=== PATIENT | male | born 1995 | race African-American/Black ===

== ENCOUNTER 2019-06-16 15:14 | Emergency (ER) | payer BC ==
[~2019-06-16] VITALS: Ht 177.8 cm; Wt 63.5 kg
--- NOTE | 2019-06-16 15:26 | NUR ---
ED Nurse Note: pt complaining of right wrist "bump" x 3 days. pt denies pain, growth in size of bump. pt states right hand feel numb
[2019-06-16 15:27] VITALS: BP 125/72
[2019-06-16] MEDS ORDERED: Omnipaque-300 100ml vial INJ PRN (15:45)
--- NOTE | 2019-06-16 15:50 | NUR ---
ED Nurse Note: IV line established, blood and urine specimen sent to lab
[2019-06-16 16:15] LABS: APPEARANCE,URINE CLEAR; BILIRUBIN, URINE NEGATIVE (NEGATIVE); COLOR,URINE AMBER; GLUCOSE, URINE (UA) NEGATIVE (NEGATIVE); KETONES,URINE NEGATIVE (NEGATIVE); LEUKOCYTE ESTERASE ,URINE 1+ (NEGATIVE); NITRITE,URINE NEGATIVE (NEGATIVE); PH,URINE 8 (4.5-8.0); PROTEIN,URINE NEGATIVE (NEGATIVE); UROBILINOGEN,URINE NORMAL MG/DL (0.0-1.0)
[2019-06-16 16:23] LABS: BASOPHILS % (AUTO) 2.2 % (0.0-2.0); EOSINOPHILS % (AUTO) 4.6 % (0.0-3.0); HEMATOCRIT 41.7 % (42.0-52.0); HEMOGLOBIN 14.2 G/DL (14.2-18.0); LYMPHOCYTES % (AUTO) 48.2 % (20.0-45.0); MEAN CORPUSCULAR VOLUME 90 FL (80-99); MONOCYTES % (AUTO) 10.7 % (1.0-10.0); NEUTROPHILS % (AUTO) 34.3 % (45.0-75.0); PLATELET COUNT 207 K/UL (150-450); RED BLOOD COUNT 4.62 M/UL (4.70-6.10); WHITE BLOOD COUNT 4.3 K/UL (4.8-10.8)
[2019-06-16 16:25] LABS: ANION GAP 10 mmol/L (5-15); BLOOD UREA NITROGEN 11 mg/dL (7-18); CALCIUM 9.3 MG/DL (8.5-10.1); CARBON DIOXIDE 30 MMOL/L (21-32); CHLORIDE 105 MMOL/L (98-107); SODIUM 145 MMOL/L (136-145)
[2019-06-16 16:32] LABS: ALANINE AMINOTRANSFERASE 26 U/L (12-78); ALBUMIN 4.1 G/DL (3.4-5.0); ALBUMIN/GLOBULIN RATIO 1.1 (1.0-2.7); ALKALINE PHOSPHATASE 66 U/L (46-116); ASPARTATE AMINO TRANSFERASE 21 U/L (15-37); BILIRUBIN,TOTAL 0.4 MG/DL (0.2-1.0)
--- NOTE | 2019-06-16 16:48 | NUR ---
ED Nurse Note: pt taken to CT
--- NOTE | 2019-06-16 17:05 | NUR ---
ED Nurse Note: pt returned from CT
[2019-06-16 17:19] VITALS: BP 121/73
--- NOTE | 2019-06-16 18:53 | Emergency Room Report ---
History of Present Illness General Chief Complaint: Skin Rash/Abscess Source: Patient Present Illness HPI 23-year-old male with no symptom past medical history here complaining of a deformity and growth noted on the right wrist times several years that has been bothersome to him in the past few days causing numbness in the right hand. Patient denies any fall or injury, denies any pain in the affected area. Denies tingling at this time and reports that he only feels them when he tries to make a fist. Patient is right-handed and reports that he works out a lot with the affected side. No motor or sensory deficits noted upon physical examination. Patient denies all other associated symptoms, weight loss, night sweats. Denies chest pain, shortness of breath, palpitations, and other associated symptoms. Allergies: Coded Allergies: No Known Allergies (Unverified , 06/16/19) Patient History Past Medical History: see triage record Past Surgical History: unable to obtain Pertinent Family History: none Immunizations: UTD Reviewed Nursing Documentation: PMH: Agreed; PSxH: Agreed Nursing Documentation-PMH Past Medical History: No Stated History Review of Systems All Other Systems: negative except mentioned in HPI Physical Exam Vital Signs Date Time Temp Pulse Resp B/P (MAP) Pulse Ox O2 Delivery O2 Flow Rate FiO2 06/16/19 15:22 98.8 57 20 125/72 (89) 97 Room Air Sp02 EP Interpretation: reviewed, normal General Appearance: no apparent distress, alert, GCS 15, non-toxic Head: normocephalic, atraumatic Eyes: bilateral eye normal inspection, bilateral eye PERRL ENT: hearing grossly normal, normal pharynx, no angioedema, normal voice Neck: full range of motion, supple, no meningismus, supple/symm/no masses Respiratory: chest non-tender, lungs clear, normal breath sounds, no rhonchi, no wheezing, speaking full sentences Cardiovascular #1: regular rate, rhythm, no edema, no murmur, normal capillary refill Cardiovascular #2: 2+ radial (R), 2+ radial (L) Gastrointestinal: normal bowel sounds, non tender, soft, non-distended, no guarding, no rebound Rectal: deferred Genitourinary: no CVA tenderness Musculoskeletal: back normal, digits/nails normal, gait/station normal, normal range of motion, non-tender, no calf tenderness, other - Nonpulsatile hard growth noted on the right medial wrist Neurologic: alert, oriented x3, responsive, motor strength/tone normal, sensory intact, speech normal Psychiatric: judgement/insight normal, memory normal, mood/affect normal, no suicidal/homicidal ideation Skin: no rash Lymphatic: no adenopathy Medical Decision Making PA Attestation All diagnoses and treatment plans were reviewed and discussed with my supervising physician Dr. Sauceda Diagnostic Impression: Primary Impression: Ganglion cyst Additional Impression: UTI (urinary tract infection) ER Course 23-year-old male with no symptom past medical history here complaining of a deformity and growth noted on the right wrist times several years that has been bothersome to him in the past few days causing numbness in the right hand. Patient denies any fall or injury, denies any pain in the affected area. Denies tingling at this time and reports that he only feels them when he tries to make a fist. Patient is right-handed and reports that he works out a lot with the affected side. No motor or sensory deficits noted upon physical examination. Patient denies all other associated symptoms, weight loss, night sweats. Denies chest pain, shortness of breath, palpitations, and other associated symptoms. Ddx considered but are not limited to : Benign mass, ganglion cyst, osteophyte, osteosarcoma Vital signs: are WNL, pt. is afebrile H&PE are most consistent with: Renal cyst, incidental finding of urinary tract infection ORDERS: CBC, CMP, UA, CT scan of the right hand and wrist with contrast ED INTERVENTIONS: None required at this time. DISCHARGE: At this time pt. is stable for d/c to home. Will provide printed patient care instructions, and any necessary prescriptions. Care plan and follow up instructions have been discussed with the patient prior to discharge. Patient to follow-up with her primary care provider for referral to general surgeon for further assessment of the ganglion cyst. If worsening symptoms return to the emergency room. CT/MRI/US Diagnostic Results CT/MRI/US Diagnostic Results : Imaging Test Ordered: CT scan right hand/wrist with contrast Impression CT EXTREMITY LEFT UPPER With Contrast: Additional history: Mass for several years. No trauma. There is a 2.7 x 1.4 x 1.5 cm cystic mass to the volar distal forearm. This is along the medial/ulnar aspect of the flexor digitorum tendons and deep to the flexor carpi ulnaris. Superficial edge is 2 mm from the skin. The mass tapers towards the wrist (series 7, images 9 and 10). Constellation of findings suggest a ganglion cyst communicating with the wrist. No acute osseous abnormality. Last Vital Signs Date Time Temp Pulse Resp B/P (MAP) Pulse Ox O2 Delivery O2 Flow Rate FiO2 06/16/19 17:19 98.5 78 19 121/73 97 Room Air Disposition: HOME, SELF-CARE Condition: Stable Scripts Cephalexin* (KEFLEX*) 500 Mg Tablet 500 MG ORAL EVERY 6 HOURS for 7 Days, #28 CAP Prov: Edgar Epperson 06/16/19 Referrals: NOT CHOSEN IPA/MD,REFERRING (PCP) Patient Instructions: Ganglion Cyst, Urinary Tract Infection, [id number] Additional Instructions: Follow-up with your primary care provider regarding her ganglion cyst further imaging may be needed if worsening symptoms return to emergency room. Take medication as directed as it was an incidental finding of urinary tract infection. Edgar Epperson Jun 16, 2019 18:53
[2019-06-16] MEDS ORDERED: CEPHALEXIN500 M1 ORAL (18:54)
--- NOTE | 2019-06-16 18:56 | Diagnostic Imaging Report ---
Indication: Reason For Exam: MASS Technique: IV administration nonionic contrast. Spiral acquisitions obtained through the right hand Multiplanar reconstructions were generated. Total dose length product 1377 mGycm. CTDIvol(s) 35 mGy. Radiation dose was minimized using automated exposure control Comparison: none Findings: Anterior to the distal ulna, there is a cystic lesion which is unilocular, demonstrates an enhancing rim, measures 27 x 17 mm in diameter. No other similar lesions are demonstrated. No acute fractures. No dislocations. The joint spaces are preserved. Evaluation of the distal digits is limited by motion artifact. Impression: 27 x 17 mm cystic lesion anterior to the distal ulna, most likely a ganglion cyst. Most likely differential consideration is a synovial cyst This agrees with the preliminary interpretation provided overnight by [facility]. The CT scanner at [facility] is accredited by the [employer] and the scans are performed using protocols designed to limit radiation exposure to as low as reasonably achievable to attain images of sufficient resolution adequate for diagnostic evaluation.
[2019-06-16 18:58] VITALS: BP 125/73
--- NOTE | 2019-06-16 19:03 | NUR ---
ER DISCHARGE NOTE: Patient is cleared to be discharged per ERMD, pt is aox4, on room air, with stable vital signs. pt was given dc and prescription instructions, pt was able to verbalize understanding, pt id band and iv site removed without complications. pt is able to ambulate with steady gait. pt took all belongings.
== END 2019-06-16 18:58 | disposition home or self-care (01) ==
LOC: EMR 15:39
DX: M67.431 Ganglion, right wrist (principal); N39.0 Urinary tract infection, site not specified
CPT/HCPCS: 36415; 73202; 80053; 81001; 85025; 99284; Q9967

== ENCOUNTER 2019-11-26 13:06 | Emergency (ER) | payer BC, MEDICAID ==
[~2019-11-26] VITALS: Ht 177.8 cm; Wt 72.6 kg
[~2019-11-26 13:06] MED LIST: CEPHALEXIN500 M1 ORAL
[2019-11-26 13:47] VITALS: BP 112/71
[2019-11-26] MEDS ORDERED: Omnipaque-300 100ml vial INJ PRN (14:00)
[2019-11-26 14:08] LABS: EOSINOPHILS % (AUTO) 0.2 % (0.0-3.0); HEMATOCRIT 48.4 % (42.0-52.0); HEMOGLOBIN 16.7 G/DL (14.2-18.0); LYMPHOCYTES % (AUTO) 12.5 % (20.0-45.0); MEAN CORPUSCULAR VOLUME 89 FL (80-99); MONOCYTES % (AUTO) 11.1 % (1.0-10.0); NEUTROPHILS % (AUTO) 75.3 % (45.0-75.0); PLATELET COUNT 279 K/UL (150-450); RED BLOOD COUNT 5.41 M/UL (4.70-6.10); RED CELL DISTRIBUTION WIDTH 11.3 % (11.6-14.8); WHITE BLOOD COUNT 8.9 K/UL (4.8-10.8)
[2019-11-26 14:19] LABS: ANION GAP 18 mmol/L (5-15); BLOOD UREA NITROGEN 42 mg/dL (7-18); CALCIUM 11.1 MG/DL (8.5-10.1); CARBON DIOXIDE 24 MMOL/L (21-32); CHLORIDE 91 MMOL/L (98-107); CREATININE 2.8 MG/DL (0.55-1.30); POTASSIUM 3.5 MMOL/L (3.5-5.1); SODIUM 133 MMOL/L (136-145)
--- NOTE | 2019-11-26 14:33 | Emergency Room Report ---
History of Present Illness General Chief Complaint: Abdominal Pain Source: Patient (Deena Madrid) Present Illness HPI 24-year-old male presents to the emergency department complaining of 10 out of 10 severity pain, swelling and erythema to the right inguinal area x2 days. Patient reports he has a history of right inguinal hernia and was diagnosed with this in months ago. Patient reports his primary care doctor has been evaluating him for his symptoms and this patient states that his symptoms come and go. Patient reports he has never had this much pain and tenderness and he was told by his primary care doctor that if he has another episode of pain and swelling that he needs to be evaluated at the ER for possible surgery. Patient denies fevers or chills. He denies testicular pain or tenderness. Patient denies penile discharge, hematuria, dysuria, pyuria or urinary frequency. He denies history of STD. He denies abdominal pain or tenderness. He denies significant past medical history. He denies taking any medications. (Deena Madrid) Allergies: Coded Allergies: No Known Allergies (Unverified , 06/16/19) COVID-19 Screening Contact w/high risk pt: No Recent Travel to affected area: No Experienced COVID-19 symptoms?: No (Deena Madrid) Patient History Past Medical History: see triage record Past Surgical History: none Pertinent Family History: none Reviewed Nursing Documentation: PMH: Agreed; PSxH: Agreed (Deena Madrid) Nursing Documentation-PMH Past Medical History: No Stated History (Deena Madrid) Review of Systems All Other Systems: negative except mentioned in HPI (Deena Madrid) Physical Exam Vital Signs Date Time Temp Pulse Resp B/P (MAP) Pulse Ox O2 Delivery O2 Flow Rate FiO2 11/26/19 13:19 98.4 88 19 112/71 (85) 99 Room Air Sp02 EP Interpretation: reviewed, normal General Appearance: no apparent distress, alert, GCS 15, non-toxic Head: normocephalic, atraumatic Eyes: bilateral eye normal inspection, bilateral eye PERRL ENT: hearing grossly normal, normal voice Neck: full range of motion Respiratory: lungs clear, normal breath sounds, no wheezing, speaking full sentences Cardiovascular #1: regular rate, rhythm, no edema Gastrointestinal: normal bowel sounds, non tender, soft, non-distended, no guarding, no hernia - no visible hernia Rectal: deferred Genitourinary: normal inspection, no CVA tenderness, penis normal, other - TTP , swelling and erythema to an indurated right inguinal lesion that is approx 3.5 cm in length and 1.8cm wide. NO palpable fluctuance. NO palpable hernia. Musculoskeletal: back normal, normal range of motion, gait/station normal, non- tender Neurologic: alert, motor strength/tone normal, oriented x3, sensory intact, responsive, speech normal Psychiatric: judgement/insight normal Skin: other - TTP, swelling and erythema to an indurated right inguinal lesion that is approx 3.5 cm in length and 1.8cm wide. NO palpable fluctuance. NO palpable hernia. (Deena Madrid) Medical Decision Making PA Attestation Dr. Edwards is my supervising Physician whom patient management has been discussed with. (Deena Madird) PA Attestation Please read to the note for the full history exam and presentation I do agree with the evaluation The work-up and the findings were followed by myself as well Patient does require admission given the findings and concern for abscess And at this time has left AGAINST MEDICAL ADVICE (Aniyah Ignacio DO) Diagnostic Impression: Primary Impression: Acute renal failure (ARF) Qualified Codes: N17.9 - Acute kidney failure, unspecified Additional Impression: Inguinal abscess ER Course 24-year-old male presents to the emergency department complaining of 10 out of 10 severity pain, swelling and erythema to the right inguinal area x2 days. Patient reports he has a history of right inguinal hernia and was diagnosed with this in months ago. Patient reports his primary care doctor has been evaluating him for his symptoms and this patient states that his symptoms come and go. Patient reports he has never had this much pain and tenderness and he was told by his primary care doctor that if he has another episode of pain and swelling that he needs to be evaluated at the ER for possible surgery. Patient denies fevers or chills. He denies testicular pain or tenderness. Patient denies penile discharge, hematuria, dysuria, pyuria or urinary frequency. He denies history of STD. He denies abdominal pain or tenderness. He denies significant past medical history. He denies taking any medications. Ddx considered but are not limited to abscess, lymphadenopathy, hernia Vital signs: are WNL, pt. is afebrile H&PE are most consistent with hernia. I do not since suspect abscess or lymphadenopathy at this time as there is no history or evidence of infection, no erythema no increased temperature palpation ORDERS: -CBC: -BMP: elevated BUN and Cr. - UDS: Positive THC - Abdominal Pelvis CT w. IV contrast, Renal US, and Testicular US: see results below. ED INTERVENTIONS: - 1 liter NS bolus x 2 Pt. to be admitted and treated as inpatient for renal failure and inguinal abscess. DISPOSITION:AMA. - At this time the patient is requesting to leave AGAINST MEDICAL ADVICE. I believe that this patient has the capacity to make decisions on his own. I discussed with the patient the risks of leaving AMA. Some of these risks include delay in diagnosis and treatment, as well as worsening of symptoms, organ damage, and permanent disability or even . After discussing these risks with the patient. He continues to express his want to leave AGAINST MEDICAL ADVICE. I encouraged the patient to return at any time, and that he will be welcome here in the emergency department to continue medical management. Labs Test 11/26/19 13:55 11/26/19 14:50 White Blood Count 8.9 K/UL (4.8-10.8) Red Blood Count 5.41 M/UL (4.70-6.10) Hemoglobin 16.7 G/DL (14.2-18.0) Hematocrit 48.4 % (42.0-52.0) Mean Corpuscular Volume 89 FL (80-99) Mean Corpuscular Hemoglobin 30.8 PG (27.0-31.0) Mean Corpuscular Hemoglobin Concent 34.5 G/DL (32.0-36.0) Red Cell Distribution Width 11.3 % (11.6-14.8) Platelet Count 279 K/UL (150-450) Mean Platelet Volume 6.4 FL (6.5-10.1) Neutrophils (%) (Auto) 75.3 % (45.0-75.0) Lymphocytes (%) (Auto) 12.5 % (20.0-45.0) Monocytes (%) (Auto) 11.1 % (1.0-10.0) Eosinophils (%) (Auto) 0.2 % (0.0-3.0) Basophils (%) (Auto) 1.0 % (0.0-2.0) Sodium Level 133 MMOL/L (136-145) Potassium Level 3.5 MMOL/L (3.5-5.1) Chloride Level 91 MMOL/L (98-107) Carbon Dioxide Level 24 MMOL/L (21-32) Anion Gap 18 mmol/L (5-15) Blood Urea Nitrogen 42 mg/dL (7-18) Creatinine 2.8 MG/DL (0.55-1.30) Estimat Glomerular Filtration Rate 33.3 mL/min (>60) Glucose Level 102 MG/DL (74-106) Calcium Level 11.1 MG/DL (8.5-10.1) Urine Opiates Screen Negative (NEGATIVE) Urine Barbiturates Screen Negative (NEGATIVE) Phencyclidine (PCP) Screen Negative (NEGATIVE) Urine Amphetamines Screen Negative (NEGATIVE) Urine Benzodiazepines Screen Negative (NEGATIVE) Urine Cocaine Screen Negative (NEGATIVE) Urine Marijuana (THC) Screen Positive (NEGATIVE) (Deena Madrid) CT/MRI/US Diagnostic Results CT/MRI/US Diagnostic Results #1: Imaging Test Ordered: Testicular US Impression "IMPRESSION: Complex heterogeneous hypoechoic echogenic area at the area of concern on the right measures 3.3 x 1.6 x 2.8 cm. The area is nonspecific with considerations including abscess, sebaceous cyst, hematoma among others and requires further clinical correlation." Per official radiology report- Please see report for specific details. CT/MRI/US Diagnostic Results #2: Imaging Test Ordered: Renal US Impression "Bilateral kidneys WNL, no acute disease " per radiology CT/MRI/US Diagnostic Results #3: Imaging Test Ordered: CT Abdomen and Pelvis w. contrast Impression "Impression: 3.5 cm ovoid somewhat low-attenuation structure just above the right hemiscrotum and immediately posterolateral to the spermatic cord. Presumably not an undescended testicle as 2 normal testicles appear to be present within the scrotal sac. Possibly a cutaneous lesion versus an unusual lesion of the inguinal canal. Ultrasound may be useful to clarify. No evidence of inguinal hernia or adenopathy." Per official radiology report- Please see report for specific details. (Deena Madrid) Last Vital Signs Date Time Temp Pulse Resp B/P (MAP) Pulse Ox O2 Delivery O2 Flow Rate FiO2 11/26/19 13:50 86 19 Room Air 11/26/19 13:47 98.4 112/71 99 (Deena Madrid) Disposition: AGAINST MEDICAL ADVICE Condition: Serious Scripts Clindamycin Hcl (CLINDAMYCIN HCL) 300 Mg Capsule 300 MG ORAL FOUR TIMES A DAY for 7 Days, #21 CAP Prov: Deena Madrid 11/26/19 Doxycycline Hyclate* (VIBRAMYCIN*) 100 Mg Capsule 100 MG ORAL EVERY 12 HOURS for 10 Days, #20 CAP 0 Refills Prov: Deena Madrid 11/26/19 Referrals: NOT CHOSEN IPA/MD,REFERRING (PCP) Patient Instructions: Abscess, Acute Kidney Injury Additional Instructions: You are leaving AMA, before results of your diagnostic lab work are available. This can cause delayed diagnosis as well as treatment, and ultimately leading up to worsening of symptoms, damage to organs, permanent disability or even . You are encouraged to return to the ER at any time if you want to continue your evaluation Deena Madrid Nov 26, 2019 14:33 Aniyah Ignacio DO Nov 26, 2019 17:51
--- NOTE | 2019-11-26 16:08 | Diagnostic Imaging Report ---
Indication: 10 out of 10 severity pain swelling and erythema to the right inguinal area for 2 days Technique: Spiral acquisitions obtained through the abdomen and pelvis. No oral contrast utilized, per emergency room physician request No IV contrast utilized, per referring physician request.. Multiplanar reconstructions were generated. Total dose length product 337 mGycm. CTDIvol(s) 6 mGy. Dose reduction achieved using automated exposure control Comparison: None Findings: There is a 3.5 cm ovoid structure located posterolateral to the spermatic cord on the right. This is somewhat low in attenuation. This does appear to be connected to the scrotal contents and is located immediately above the scrotal sac. It is immediately deep to the skin. What appear to be 2 normal testicles are seen within the scrotal sac. There is no evidence of inguinal hernia. No inguinal adenopathy demonstrated. Normal inguinal lymph nodes are demonstrated. No inguinal hernia is evident. A small calcification within the left hemiscrotum may reflect a small so-called scrotal pleural Lack of enteric contrast limits assessment of the GI tract. The appendix is only equivocally identified. However, there are no findings to suggest acute appendicitis. No small bowel distention. No free or loculated intraperitoneal gas or fluid is evident. The distal esophagus, stomach, duodenum are unremarkable. The lack of IV contrast limits assessment of the solid organs. The liver is unremarkable. Gallbladder contents appear somewhat heterogeneous, likely reflecting gallstones. No biliary ductal dilatation. The pancreas, spleen, adrenals, kidneys are unremarkable. No pelvic mass or adenopathy. The included lung bases are clear. The bones are unremarkable. Impression: 3.5 cm ovoid somewhat low-attenuation structure just above the right hemiscrotum and immediately posterolateral to the spermatic cord. Presumably not an undescended testicle as 2 normal testicles appear to be present within the scrotal sac. Possibly a cutaneous lesion versus an unusual lesion of the inguinal canal. Ultrasound may be useful to clarify No evidence of inguinal hernia or adenopathy. Small left hemiscrotal calcification, probably a so-called scrotal pleural Limited assessment of the GI tract, due to lack of enteric contrast administration no gross acute abnormality Possible cholelithiasis The CT scanner at [facility] is accredited by the [employer] and the scans are performed using protocols designed to limit radiation exposure to as low as reasonably achievable to attain images of sufficient resolution adequate for diagnostic evaluation.
[2019-11-26 16:34] VITALS: BP 125/63
--- NOTE | 2019-11-26 17:06 | Diagnostic Imaging Report ---
History: PAIN Exam: US SCROTAL Comparison: FINDINGS: The right testicle measures 4.2 x 2.1 x 2.7 cm. The left testicle measures 3.1 x 1.9 x 2.8 cm. The testicles appear symmetric and isoechoic with bilateral vascular flow seen. Small echogenic focus within the left testicle may represent microcalcification. Right and left epididymis appear within limits. Very small left hydrocele noted. Complex heterogeneous hypoechoic echogenic area at the area of concern on the right measures 3.3 x 1.6 x 2.8 cm. The area is nonspecific with considerations including abscess, sebaceous cyst, hematoma among others and requires further clinical correlation. IMPRESSION: Complex heterogeneous hypoechoic echogenic area at the area of concern on the right measures 3.3 x 1.6 x 2.8 cm. The area is nonspecific with considerations including abscess, sebaceous cyst, hematoma among others and requires further clinical correlation.
[2019-11-26] MEDS ORDERED: VIBRAMYCIN100 MG ORAL (17:07)
[2019-11-26] MEDS ORDERED: CLINDAMYCIN HC300 MG ORAL (17:07)
--- NOTE | 2019-11-26 17:24 | Diagnostic Imaging Report ---
Indication: Pain, abnormal renal function tests, acute renal failure Technique: Grayscale and duplex images of the kidneys, retroperitoneum, and bladder were obtained. Comparison: none Findings: Right kidney measures 9.5 cm in length. Left kidney measures 9.9 cm in length. Both kidneys demonstrate normal echogenicity. No hydronephrosis. No focal abnormality. Normal inferior vena cava. Bladder is empty and not visualized. Impression: negative.
[2019-11-26 17:27] VITALS: BP 125/63
== END 2019-11-26 17:30 | disposition left against medical advice (07) ==
LOC: EMR 13:33 → 3E 15:20 → UNDOADMIN 15:20 → EDBEDREQ 16:02 → CANBEDREQ 17:28
DX: N17.9 Acute kidney failure, unspecified (principal); L02.214 Cutaneous abscess of groin
CPT/HCPCS: 36415; 74176; 76770; 76870; 80048; 80307; 85025; 96360; J7030; Z7502; 99284

== ENCOUNTER 2019-12-05 18:48 | Emergency (ER) | payer MEDICAID ==
[~2019-12-05] VITALS: Ht 177.8 cm; Wt 74.8 kg
[~2019-12-05 18:48] MED LIST changes: +CLINDAMYCIN HC300 MG ORAL; +VIBRAMYCIN100 MG ORAL
[2019-12-05 18:56] VITALS: BP 134/70
[2019-12-05] MEDS ORDERED: DOXYCYCLINE MO100 MG ORAL (19:16)
--- NOTE | 2019-12-05 19:16 | Emergency Room Report ---
History of Present Illness General Chief Complaint: Male Urogenital Problems Source: Patient Present Illness HPI 24-year-old male presents with right scrotal lesion, he said over the past month is been shrinking, he already had a full evaluation with ultrasound CT patient denies any pain patient was already following up with urologist patient comes to the ED to have it evaluated no fevers no chills no dysuria no discharge , he states the size keeps changing. Patient noted some white stuff come out of the lesion Allergies: Coded Allergies: No Known Allergies (Unverified , 06/16/19) COVID-19 Screening Contact w/high risk pt: No Recent Travel to affected area: No Experienced COVID-19 symptoms?: No Patient History Past Medical History: see triage record Reviewed Nursing Documentation: PMH: Agreed; PSxH: Agreed Nursing Documentation-PMH Past Medical History: No History, Except For Review of Systems All Other Systems: negative except mentioned in HPI Physical Exam Vital Signs Date Time Temp Pulse Resp B/P (MAP) Pulse Ox O2 Delivery O2 Flow Rate FiO2 12/05/19 18:56 99.1 82 18 134/70 (91) 97 Nasal Cannula General Appearance: well appearing, no apparent distress Head: normocephalic, atraumatic ENT: hearing grossly normal, normal voice Neck: full range of motion, supple Respiratory: no respiratory distress, speaking full sentences Genitourinary: other - [employer] Ronak Heller, 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, no tenderness of the epididymis, scrotal exam shows a 2 x 2 centimeter lesion on the right aspect of the scrotum with a white punctate tip, no pus is expressed, mildly tender to palpation no fluctuance felt induration noted Neurologic: alert, normal gait Psychiatric: mood/affect normal Skin: no rash Medical Decision Making Diagnostic Impression: Primary Impression: Scrotal abscess ER Course 24-year-old male presents with lesion to the right scrotum, has been chronic in nature possible abscess versus cancerous lesion, patient states he is following up with urology who are continue to monitor it, counseled patient to follow-up with urology again in order to determine whether need they need to excise it, patient will be started on antibiotics disposition home with return precautions follow-up with PCP Last Vital Signs Date Time Temp Pulse Resp B/P (MAP) Pulse Ox O2 Delivery O2 Flow Rate FiO2 12/05/19 18:56 99.1 82 18 134/70 (21) 52 Nasal Cannula Disposition: HOME, SELF-CARE Condition: Stable Scripts Doxycycline Monohydrate* (DOXYCYCLINE MONOHYDRATE*) 100 Mg Capsule 100 MG ORAL Q12H, #28 CAP 0 Refills Prov: Claudio Chi MD 12/05/19 Referrals: Fei Ortega MD Patient Instructions: Abscess, [id number] Additional Instructions: The patient was provided with discharge instructions, notified to follow-up with a primary care doctor and or specialist in the next 24-48 hours, and to return to the ED if they have worsening of their symptoms. Please note that this report is being documented using DRAGON technology. This can lead to erroneous entry secondary to incorrect interpretation by the dictating instrument. PLEASE FOLLOW-UP WITH PCP AND UROLOGIST Claudio Chi MD December 05, 2019 19:16
[2019-12-05 19:22] VITALS: BP 127/80
== END 2019-12-05 19:22 | disposition home or self-care (01) ==
LOC: EMR 19:00
DX: N49.2 Inflammatory disorders of scrotum (principal)
CPT/HCPCS: 99282